=== PATIENT | female | born 1985 | race Caucasian/White ===

== ENCOUNTER 2017-04-29 06:36 | Emergency (ER) | payer OTHER ==
[~2017-04-29] VITALS: Ht 162.6 cm; Wt 97.1 kg
[2017-04-29 07:09] LABS: APPEARANCE,URINE CLEAR; KETONES,URINE NEGATIVE (NEGATIVE); LEUKOCYTE ESTERASE ,URINE 2+ (NEGATIVE); NITRITE,URINE NEGATIVE (NEGATIVE); PH,URINE 6 (4.5-8.0); PROTEIN,URINE NEGATIVE (NEGATIVE); UROBILINOGEN,URINE NORMAL MG/DL (0.0-1.0)
--- NOTE | 2017-04-29 07:11 | Emergency Room Report ---
History of Present Illness General Chief Complaint: Abdominal Pain Source: Patient Present Illness HPI 31-year-old female walks in with 3 days of suprapubic pain and dysuria. No associated polyuria, nausea, vomiting, diarrhea, fever or chills. Denies recent travel or sick contacts. Denies frequent UTIs. Last menstrual period was 2 days ago, on control. No previous abdominal or pelvic surgery. Medical history significant for anxiety and depression. Allergies: Coded Allergies: No Known Allergies (Unverified , 04/29/17) Patient History Past Medical History: psych hx Past Surgical History: none Pertinent Family History: none Social History: Denies: smoking, alcohol use, drug use Last Menstrual Period: 03/22/17 Now: No Immunizations: UTD Reviewed Nursing Documentation: PMH: Agreed, PSxH: Agreed Nursing Documentation-PMH Past Medical History: No Stated History Review of Systems All Other Systems: negative except mentioned in HPI Physical Exam Vital Signs Date Time Temp Pulse Resp B/P (MAP) Pulse Ox O2 Delivery O2 Flow Rate FiO2 04/29/17 06:39 97.5 103 16 112/72 98 Room Air Sp02 EP Interpretation: reviewed, normal General Appearance: normal inspection, well appearing, no apparent distress, alert, GCS 15, non-toxic Head: normocephalic, atraumatic Eyes: bilateral eye PERRL, bilateral eye EOMI ENT: normal ENT inspection, hearing grossly normal, normal voice Neck: normal inspection, full range of motion, supple, no bony tend Respiratory: normal inspection, lungs clear, normal breath sounds, no respiratory distress, no retraction, no wheezing Cardiovascular #1: regular rate, rhythm, no edema Gastrointestinal: normal inspection, normal bowel sounds, non tender, soft, no guarding, no hernia Genitourinary: no CVA tenderness, other - Mild suprapubic ttp. Musculoskeletal: normal inspection, back normal, normal range of motion, Melanie' s Sign negative Neurologic: normal inspection, alert, oriented x3, responsive, director biology III-XII nml as tested, motor strength/tone normal, speech normal Psychiatric: normal inspection, judgement/insight normal, mood/affect normal Skin: normal inspection, normal color, no rash Medical Decision Making Diagnostic Impression: Primary Impression: Dysuria ER Course 31-year-old female with dysuria and suprapubic pain Vital signs stable, afebrile Very well-appearing, nonseptic appearing Sitting upright on stretcher, texting on phone Abdominal exam is benign on serial exam Urine negative Urinalysis positive for leukocyte esterase and bacteria We'll give antibiotics for UTI Low suspicion for acute bacterial or surgical process requiring additional labs , imaging, or admission ER course: Patient has remained stable during ED stay. Disposition: Patient is to be discharged to home. Prescriptions given are macrobid Patient is instructed to follow up with their primary care doctor within 5 days. Strict return precautions discussed with patient such as fever, chills, worsening/severe pain, nausea, vomiting, which may indicate severe illness. Patient verbalizes understanding and agrees with plan. Please note that this Emergency Department Report was dictated using [employer] secretary technology software, occasionally this can lead to erroneous entry secondary to interpretation by the dictation equipment Last Vital Signs Date Time Temp Pulse Resp B/P (MAP) Pulse Ox O2 Delivery O2 Flow Rate FiO2 04/29/17 06:39 97.5 103 16 112/72 98 Room Air Status: improved Disposition: HOME, SELF-CARE Scripts Nitrofurantoin Monohyd/M-Cryst* (MACROBID 100 MG*) 100 Mg Capsule 100 MG ORAL EVERY 12 HOURS for 7 Days, #14 CAP Prov: ANIYAH ROME M.D. 04/29/17 ANIYAH ROME M.D. Apr 29, 2017 07:11
[2017-04-29 07:28] LABS: BACTERIA,URINE FEW /HPF; SQUAMOUS EPITHELIAL CELL,UR FEW /LPF (NONE/OCC)
[2017-04-29] MEDS ORDERED: NITROFURANTOIN100 M2 ORAL (07:36)
[2017-04-29 07:43] VITALS: BP 118/72
[2017-04-29 07:45] VITALS: BP 118/72
== END 2017-04-29 07:45 | disposition home or self-care (01) ==
LOC: EMR 07:17
DX: R30.0 Dysuria (principal); R10.30 Lower abdominal pain, unspecified
CPT/HCPCS: 81003; 81025; 99283

== ENCOUNTER 2017-11-20 14:01 | Emergency (ER) | payer BC, OTHER ==
[~2017-11-20] VITALS: Ht 162.6 cm; Wt 81.6 kg
[~2017-11-20 14:01] MED LIST: NITROFURANTOIN100 M2 ORAL
[2017-11-20 14:15] VITALS: BP 106/67
[2017-11-20] MEDS ORDERED: Ketorolac 30mg Inj IM ONE (15:00)
[2017-11-20] MEDS ORDERED: Acetaminophen 500mg (ES) tab ORAL ONE (15:00)
--- NOTE | 2017-11-20 15:18 | Emergency Room Report ---
History of Present Illness General Chief Complaint: General Complaint Source: Patient Present Illness HPI 32-year-old female patient presents ER complaining of bilateral breast pain since yesterday and headache for the past 3 days. Reports similar headaches in the past, reports headache is located in the back of her head, states it is likely due to stress, states she took Tylenol with mild relief of symptoms. Also complains of bilateral breast pain, denies erythema or swelling, denies breast-feeding, denies discharge or lesions. Denies other acute symptoms at this time. Denies fever, chest pain, shortness of breath, neck pain, abdominal pain, vomiting, diarrhea. denies cough, history of cancer, recent immobilization or travel. Also complains of right foot pain. Reports bump on her foot. Denies recent injury or trauma. Denies pain with ambulation. Allergies: Coded Allergies: No Known Allergies (Unverified , 04/29/17) Patient History Past Medical History: see triage record Last Menstrual Period: 11/17/17 Reviewed Nursing Documentation: PMH: Agreed; PSxH: Agreed Nursing Documentation-PMH Past Medical History: No Stated History Review of Systems All Other Systems: negative except mentioned in HPI Physical Exam Vital Signs Date Time Temp Pulse Resp B/P (MAP) Pulse Ox O2 Delivery O2 Flow Rate FiO2 11/20/17 14:15 98.5 95 18 106/67 95 Room Air 98.4 Sp02 EP Interpretation: reviewed, normal General Appearance: well appearing, no apparent distress, alert, GCS 15, non- toxic Head: normocephalic, atraumatic Eyes: bilateral eye normal inspection, bilateral eye PERRL ENT: hearing grossly normal, normal pharynx, no angioedema, normal voice, uvula midline, moist mucus membranes Neck: full range of motion Respiratory: lungs clear, normal breath sounds, no rhonchi, no respiratory distress, no accessory muscle use, no wheezing, speaking full sentences Cardiovascular #1: regular rate, rhythm, no edema, other - no palpable masses on breasts, no nipple discharge, no erythema, no edema, no signs of infection bilaterally Genitourinary: no CVA tenderness Musculoskeletal: back normal, digits/nails normal, gait/station normal, normal range of motion, non-tender, other - NVI, tender - dorsum right foot, 1 cm palpable nodule between second and third metatarsal on the dorsum of foot, no signs of infection, no erythema, mild edema Neurologic: alert, oriented x3, responsive, motor strength/tone normal, sensory intact, other - negative Kernig, negative Brudzinski Psychiatric: mood/affect normal Medical Decision Making PA Attestation Dr. Brunson is my supervising Physician whom patient management has been discussed with. Diagnostic Impression: Primary Impression: Ganglion cyst of foot Additional Impressions: Headache Muscle stiffness Anxiety ER Course Pt presents to ED c/o headache and breast pain. Multiple differentials considered. No calf swelling, negative Homans sign, no cough, low suspicion for PE or DVT Per Well's criteria. VITAL SIGNS are WNL, patient is afebrile ER COURSE UA unremarkable, low suspicion for UTI. No signs of anemia, patient afebrile, vitals stable, does not require labs at this time. Breasts tender to palpation, worse with movement of arms, no discharge no open wounds no erythema no edema, no signs of infection or cellulitis. no masses on palpation, no nipple discharge. likely musculoskeletal pain, will provide medication. Follow-up with primary care and get referral for mammogram. Headache does not require CT scan at this time, denies worse headache of life. Denies loss of vision. may be related to stress, patient reports similar symptoms of headache and stress in the past. Provide treatment. Instructed patient to discuss further referral to neurology. No focal neuro deficits. Patient is AOx3, neurologically intact, nontoxic appearing, and ambulatory. negative Kernig, negative Brudzinski, low suspicion for meningitis. pain on foot nontraumatic, likely due to cysts. No erythema or edema, palpable 1 cm nodule. Follow-up with PCP to discuss referral to surgeon and or other possible treatment options. RICE: Rest, ice, compression, elevation. Take Tylenol for pain symptoms. Patient began complaining of difficulty breathing, lungs clear to auscultation, chest x-ray ordered, will order breathing treatments and fluids. chest x-ray negative for acute disease. Patient reports feeling better following breathing treatment. Lungs clear to auscultation, moving air better. Will provide inhaler at discharge. Patient reports hx of anxiety, not reported during initial interview. Symptoms may be related to anxiety hx, follow up with mental health provider to discuss further treatment at that time. Informed patient that symptoms may be related to stress. Needs further workup and evaluation by PCP with further referrals as needed. DISCHARGE: -Rx provided Tylenol At this time pt is stable for d/c to home. Patient is resting comfortably, in no acute distress, nontoxic appearing, talking and smiling. Will provide with patient care instructions and any necessary prescriptions. Patient to take medication as instructed. Care plan and follow-up instructions provided. Patient questions asked and answered. Patient instructed to follow-up with primary care provider in the next 3 days and discuss further referral with PCP to neurologist. ER precautions given. Patient instructed to return to ER immediately for any new or worsening of symptoms including but not limited to fever, neck stiffness , vision changes, and neurological symptoms. - Please note that this Emergency Department Report was dictated using [employer] spec technology software, occasionally this can lead to erroneous entry secondary to interpretation by the dictation equipment. Labs Test 11/20/17 15:25 Urine Color Yellow Urine Appearance Clear Urine pH 5 (4.5-8.0) Urine Specific [place] 1.025 (1.005-1.035) Urine Protein Negative (NEGATIVE) Urine Glucose (UA) Negative (NEGATIVE) Urine Ketones Negative (NEGATIVE) Urine Occult Blood 5+ (NEGATIVE) Urine Nitrite Negative (NEGATIVE) Urine Bilirubin Negative (NEGATIVE) Urine Urobilinogen Normal MG/DL (0.0-1.0) Urine Leukocyte Esterase 1+ (NEGATIVE) Urine RBC 5-10 /HPF (0 - 2) Urine WBC 2-4 /HPF (0 - 2) Urine Squamous Epithelial Cells Few /LPF (NONE/OCC) Urine Bacteria Few /HPF (NONE) Urine HCG, Qualitative Negative (NEGATIVE) Chest X-Ray Diagnostic Results Chest X-Ray Diagnostic Results : Chest X-Ray Ordered: Yes # of Views/Limited/Complete: 1 View Indication: Chest Pain EP Interpretation: Yes PA Xray: Interpretation reviewed, by supervising MD, and agrees with findings. Interpretation: no consolidation, no effusion, no pneumothorax, no acute cardiopulmonary disease Impression: No acute disease MADISON Kyle PA-C Other X-Ray Diagnostic Results Other X-Ray Diagnostic Results : X-Ray ordered: right foot # of Views/Limited Vs Complete: 3 View Indication: Pain EP Interpretation: Yes PA Xray: Interpretation reviewed, by supervising MD, and agrees with findings. Interpretation: no dislocation, no soft tissue swelling, no fractures Impression: No acute disease MADISON Dukesibabdoul Text Macario Kyle PA-C Last Vital Signs Date Time Temp Pulse Resp B/P (MAP) Pulse Ox O2 Delivery O2 Flow Rate FiO2 11/20/17 14:15 98.5 95 18 106/67 95 Room Air 98.4 Disposition: HOME, SELF-CARE Condition: Stable Scripts Albuterol Sulfate* (ALBUTEROL SULFATE MDI*) 8.5 Gm Hfa.aer.ad 2 PUFF INH Q6H, #1 INH 0 Refills Prov: Jame Kyle 11/20/17 Acetaminophen* (TYLENOL EXTRA STRENGTH*) 500 Mg Tablet 500 MG ORAL Q8H PRN for Prn Headache/Temp > 101, #30 TAB 0 Refills Prov: Jame Kyle 11/20/17 Patient Instructions: Ganglion Cyst, General Headache Without Cause, Easy-to- Read, Generalized Anxiety Disorder, Muscle Cramps and Spasms Additional Instructions: Followup with primary care provider in 3 -5 days. Discuss referral for mammography. Discuss referral for cyst treatment in foot. RICE: rest, ice, compression, elevation. Discuss referral to neurology for evaluation of headache. Followup with PCP and discuss referral to mental health. Avoid stress. Drink plenty of fluids. Take medications as directed. Patient questions asked and answered. ER precautions given, patient instructed to return to ER immediately for any new or worsening of symptoms. Jame Kyle Nov 20, 2017 15:18
[2017-11-20 15:39] LABS: APPEARANCE,URINE CLEAR; BILIRUBIN, URINE NEGATIVE (NEGATIVE); GLUCOSE, URINE (UA) NEGATIVE (NEGATIVE); KETONES,URINE NEGATIVE (NEGATIVE); LEUKOCYTE ESTERASE ,URINE 1+ (NEGATIVE); NITRITE,URINE NEGATIVE (NEGATIVE); PH,URINE 5 (4.5-8.0); PROTEIN,URINE NEGATIVE (NEGATIVE); UROBILINOGEN,URINE NORMAL MG/DL (0.0-1.0)
[2017-11-20 15:40] LABS: COLOR,URINE YELLOW
[2017-11-20] MEDS ORDERED: Albuterol/Ipratropium 3ml neb HHN ONE (16:00)
[2017-11-20] MEDS ORDERED: ATARAX25 MG ORAL (16:13)
[2017-11-20] MEDS ORDERED: IBUPROFEN600 MG ORAL (16:13)
[2017-11-20] MEDS ORDERED: NORCO 5-325 TA1 EACH ORAL (16:13)
--- NOTE | 2017-11-20 16:42 | Diagnostic Imaging Report ---
Indication: Cough x3 days Technique: One view of the chest Comparison: none Findings: Lungs and pleural spaces are clear. Heart size is normal Impression: No acute process
[2017-11-20] MEDS ORDERED: ALBUTEROL SULF8.5 GM INH (16:59)
[2017-11-20] MEDS ORDERED: TYLENOL EXTRA500 MG ORAL (16:59)
[2017-11-20 17:02] VITALS: BP 106/67
--- NOTE | 2017-11-20 18:34 | Diagnostic Imaging Report ---
Indication: Foot pain Technique: 3 views right foot Comparison: none Findings: No acute fractures. No dislocations. The joint spaces are preserved. Impression: Negative
== END 2017-11-20 18:01 | disposition home or self-care (01) ==
LOC: EMR 14:45
DX: M67.471 Ganglion, right ankle and foot (principal); R51 Headache; F41.9 Anxiety disorder, unspecified; M25.60 Stiffness of unspecified joint, not elsewhere classified; N64.4 Mastodynia
CPT/HCPCS: 71045; 73630; 81003; 81025; 94640; 94664; 96360; 96372; 99284; J1885; J7620

== ENCOUNTER 2018-12-22 00:49 | Emergency (ER) | payer BC, OTHER ==
[~2018-12-22] VITALS: Ht 152.4 cm; Wt 90.7 kg
[~2018-12-22 00:49] MED LIST changes: +ALBUTEROL SULF8.5 GM INH; +ATARAX25 MG ORAL; +IBUPROFEN600 MG ORAL; +NORCO 5-325 TA1 EACH ORAL; +TYLENOL EXTRA500 MG ORAL
[2018-12-22 00:52] VITALS: BP 129/77
--- NOTE | 2018-12-22 01:08 | NUR ---
ED Nurse Note: patikarina waslked in to ER c/O abd pain for the last 2 days 01/05. also has diarrhea. Bp 129/77, t 98.5, hr 82. rr 18. patient is aler x4, ambulatory. bed is in lowest position. safety measures ensured. will continue to monitor.
[2018-12-22 01:28] LABS: BASOPHILS % (AUTO) 0.4 % (0.0-2.0); EOSINOPHILS % (AUTO) 0.6 % (0.0-3.0); HEMATOCRIT 36.9 % (37.0-47.0); LYMPHOCYTES % (AUTO) 27.9 % (20.0-45.0); MEAN CORPUSCULAR VOLUME 85 FL (80-99); MONOCYTES % (AUTO) 4.8 % (1.0-10.0); NEUTROPHILS % (AUTO) 66.4 % (45.0-75.0); PLATELET COUNT 198 K/UL (150-450); RED BLOOD COUNT 4.35 M/UL (4.20-5.40); RED CELL DISTRIBUTION WIDTH 13.6 % (11.6-14.8); WHITE BLOOD COUNT 8.5 K/UL (4.8-10.8)
[2018-12-22 01:31] LABS: APPEARANCE,URINE CLOUDY; BILIRUBIN, URINE NEGATIVE (NEGATIVE); COLOR,URINE PALE YELLOW; GLUCOSE, URINE (UA) NEGATIVE (NEGATIVE); KETONES,URINE NEGATIVE (NEGATIVE); LEUKOCYTE ESTERASE ,URINE 3+ (NEGATIVE); NITRITE,URINE NEGATIVE (NEGATIVE); PH,URINE 5 (4.5-8.0); PROTEIN,URINE 1+ (NEGATIVE); UROBILINOGEN,URINE NORMAL MG/DL (0.0-1.0)
--- NOTE | 2018-12-22 01:36 | Emergency Room Report ---
History of Present Illness General Chief Complaint: Abdominal Pain Source: Patient Present Illness HPI Is a 33-year-old female who is 4, para 3, 13-1/2 weeks . She presents with chief complaint of lower abdominal pain with nausea vomiting and diarrhea. Onset for 1 day. She just saw her EXTERNAL RELATIONS DIRECTOR few days ago and had ultrasound done and blood work done. Denies any fever chills. Denies any bloody emesis. Diarrhea is watery. Pain is crampy in nature. No other complaint. Allergies: Coded Allergies: No Known Allergies (Unverified , 04/29/17) Patient History Past Medical History: see triage record, old chart reviewed Past Surgical History: other Pertinent Family History: none Social History: Denies: smoking Last Menstrual Period: 14 weeks Now: Yes : 4 Para: 3 Immunizations: other Reviewed Nursing Documentation: PMH: Agreed; PSxH: Agreed Nursing Documentation-PMH Past Medical History: No Stated History Review of Systems Eye: Denies: eye pain, blurred vision ENT: Denies: ear pain, nose congestion, throat swelling Respiratory: Denies: cough, shortness of breath Cardiovascular: Denies: chest pain, palpitations Gastrointestinal: Reports: abdominal pain, diarrhea, nausea, vomiting Musculoskeletal: Denies: back pain, joint pain Skin: Denies: rash Neurological: Denies: headache, numbness Endocrine: Denies: increased thirst, increased urine Hematologic/Lymphatic: Denies: easy bruising All Other Systems: negative except mentioned in HPI Physical Exam Vital Signs Date Time Temp Pulse Resp B/P (MAP) Pulse Ox O2 Delivery O2 Flow Rate FiO2 12/22/18 00:52 98.5 82 18 129/77 98 Room Air 12/22/18 00:52 98 Vitals normal Sp02 EP Interpretation: reviewed, normal General Appearance: well appearing, no apparent distress, alert Head: normocephalic, atraumatic Eyes: bilateral eye PERRL, bilateral eye EOMI ENT: hearing grossly normal, normal pharynx Neck: full range of motion, supple, no meningismus Respiratory: chest non-tender, lungs clear, normal breath sounds Cardiovascular #1: regular rate, rhythm, no murmur Gastrointestinal: normal bowel sounds, non tender, no mass, no organomegaly, no bruit, non-distended, other - gravid Musculoskeletal: back normal, gait/station normal, normal range of motion Psychiatric: mood/affect normal Medical Decision Making Diagnostic Impression: Primary Impression: Abdominal pain in Qualified Codes: O26.892 - Other specified related conditions, second trimester; R10.9 - Unspecified abdominal pain Additional Impression: UTI (urinary tract infection) Qualified Codes: N30.00 - Acute cystitis without hematuria ER Course Patient presents with abdominal pain and . She may have a urinary tract infection. She is very anxious because her ultrasound showed that the baby has a cystic hygroma. I suspect this caused her anxiety to be worse. She asked me to see if I can remove the baby in the ER. Plan to patient that she needs to see her EXTERNAL RELATIONS DIRECTOR for this procedure. I did a bedside ultrasound and it showed a viable with good movement and heart rate. No evidence of trauma. Will discharge home. Last Vital Signs Date Time Temp Pulse Resp B/P (MAP) Pulse Ox O2 Delivery O2 Flow Rate FiO2 12/22/18 00:56 98.6 97 18 110/73 (85) 96 Room Air 12/22/18 00:52 98 Status: improved Disposition: HOME, SELF-CARE Condition: Stable Scripts Ondansetron (Zofran) 4 Mg Tablet 4 MG ORAL Q6H PRN for Nausea & Vomiting, #30 TAB 0 Refills Prov: Frank Collins MD 12/22/18 Nitrofurantoin Monohyd/M-Cryst (Nitrofurantoin [place]-Mcr 100 mg) 100 Mg Capsule 100 MG ORAL Q12H, #14 CAP Prov: Frank Collins MD 12/22/18 Patient Instructions: Abdominal Pain During Additional Instructions: Follow-up with your EXTERNAL RELATIONS DIRECTOR within a week for recheck. Return if worse. Frank Collins MD Dec 22, 2018 01:35
[2018-12-22 01:37] LABS: ANION GAP 9 mmol/L (5-15); BLOOD UREA NITROGEN 9 mg/dL (7-18); CALCIUM 8.7 MG/DL (8.5-10.1); CARBON DIOXIDE 24 MMOL/L (21-32); CHLORIDE 105 MMOL/L (98-107); CREATININE 0.8 MG/DL (0.55-1.30); POTASSIUM 3.3 MMOL/L (3.5-5.1); SODIUM 138 MMOL/L (136-145)
[2018-12-22] MEDS ORDERED: cefTRIAXone 1 GM in NS 55 ML IVPB ONE (01:45)
[2018-12-22] MEDS ORDERED: MACROBID100 MG ORAL (01:47)
[2018-12-22] MEDS ORDERED: ZOFRAN4 MG ORAL (01:47)
[2018-12-22 02:19] VITALS: BP 125/74
--- NOTE | 2018-12-22 02:19 | NUR ---
ER DISCHARGE NOTE: Patient is cleared to be discharged per ERMD, pt is aox4, on room air, with stable vital signs. pt was given dc and prescription instructions, pt was able to verbalize understanding, pt id band and iv site removed without complications. pt is able to ambulate with steady gait. pt took all belongings.
== END 2018-12-22 02:19 | disposition home or self-care (01) ==
LOC: EMR 01:02
DX: O26.892 Other specified pregnancy related conditions, second trimester (principal); R10.9 Unspecified abdominal pain; O23.41 Unspecified infection of urinary tract in pregnancy, first trimester; Z3A.13 13 weeks gestation of pregnancy
CPT/HCPCS: 36415; 80048; 81001; 85025; 87086; 96360; 96365; 96375; 99284; J0696; J2405